=== PATIENT | female | born 1965 | race Caucasian/White ===

== ENCOUNTER 2017-11-08 02:19 | Outpatient (CLI) | payer MEDICARE, MEDICAID, SELFPAY ==
[2017-11-08 11:36] LABS: TSH 0.95 uIU/mL (0.358-3.74)
== END 2017-11-08 02:39 ==
PROVIDERS: PCP Emergency Medicine; Visit Provider Emergency Medicine
DX: E03.9 Hypothyroidism, unspecified (principal)
CPT/HCPCS: 36415; 84443

== ENCOUNTER 2018-12-01 01:56 | Outpatient (CLI) | payer MEDICARE, MEDICAID, SELFPAY ==
[2018-12-01 11:55] LABS: HCT 44.1 % (36.0-46.0); HGB 14.4 g/dL (12.0-15.5); Mean Corp. HGB Concentration 32.7 g/dL (32.0-36.0); Mean Corpuscular Hemoglobin 32.8 pg (27.0-33.0); Mean Corpuscular Volume 100.5 fL (80-95); Mean Platelet Volume 9.7 fL (8.0-11.0); Platelet Count 412 x1000/uL (130-400); RBC 4.39 m/cumm (4.00-5.20); RBC Distribution Width 12.9 % (11.7-14.6); White Blood Cell Count 4.54 k/cumm (4.4-10.8)
[2018-12-01 12:32] LABS: ALT 31 U/L (14-59); AST 21 U/L (15-37); Albumin 3.4 g/dL (3.4-5.0); Alkaline Phosphatase 66 U/L (46-116); Anion Gap 9.3 mmol/L (3-11); BUN 16 mg/dL (7-18); Bilirubin, Total 0.6 mg/dL (0.2-1.0); CO2 27.7 mmol/L (21.0-32.0); CREATININE 0.76 mg/dL (0.55-1.02); Calcium 9.2 mg/dL (8.5-10.1); Chloride 105 mmol/L (98-107); Glucose 83 mg/dL (70-100); Potassium 4.3 mmol/L (3.5-5.1); Sodium 142 mmol/L (136-145); TSH 1.11 uIU/mL (0.36-3.74); Total Protein 7.1 g/dL (6.4-8.2)
[2018-12-01 13:06] LABS: ESR 18 mm/hr (0-30)
== END 2018-12-01 02:16 ==
PROVIDERS: PCP Emergency Medicine; Visit Provider Emergency Medicine
DX: E03.9 Hypothyroidism, unspecified (principal); Q90.9 Down syndrome, unspecified
CPT/HCPCS: 36415; 80053; 85027; 85652; 84443

== ENCOUNTER 2019-02-16 03:10 | Outpatient (CLI) | payer MEDICARE, MEDICAID, SELFPAY ==
[2019-02-16 11:41] LABS: Abs Immature Grans 0.01 k/cumm (0.0-0.09); Absolute Basophil Count 0.02 k/cumm (0.0-0.2); Absolute Lymphocyte Count 1.84 k/cumm (1.2-3.4); Absolute Monocyte Count 0.35 k/cumm (0.11-0.7); Absolute Neutrophil Count 2.91 k/cumm (1.2-6.7); Basophils % 0.4; Eosinophils % 1.9; HCT 42.7 % (36.0-46.0); HGB 13.6 g/dL (12.0-15.5); Immature Grans % 0.2 %; Lymphocytes % 35.2; Mean Corp. HGB Concentration 31.9 g/dL (32.0-36.0); Mean Corpuscular Hemoglobin 32.4 pg (27.0-33.0); Mean Corpuscular Volume 101.7 fL (80-95); Mean Platelet Volume 9.8 fL (8.0-11.0); Monocytes % 6.7; Neutrophils % 55.6; Platelet Count 363 x1000/uL (130-400); RBC Distribution Width 12.6 % (11.7-14.6); White Blood Cell Count 5.23 k/cumm (4.4-10.8)
[2019-02-16 13:03] LABS: Vitamin B12 501 pg/mL (193-986)
[2019-02-16 13:06] LABS: Folate > 20.0 ng/mL (8.6-20.0)
[2019-02-20 15:49] LABS: Methylmalonic Acid 0.15 nmol/mL (<=0.40)
== END 2019-02-16 03:30 ==
PROVIDERS: PCP Emergency Medicine; Visit Provider Emergency Medicine
DX: R63.4 Abnormal weight loss (principal); Z51.81 Encounter for therapeutic drug level monitoring; E03.9 Hypothyroidism, unspecified
CPT/HCPCS: 36415; 80186; 82607; 82746; 85025

== ENCOUNTER 2020-05-26 03:02 | Outpatient (CLI) | payer MEDICARE, MEDICAID, SELFPAY ==
[2020-05-27 18:09] LABS: COVID-19 RT-PCR UVMMC Result Negative (Negative)
== END 2020-05-26 03:03 | disposition home or self-care (01) ==
LOC: LBO 03:02
PROVIDERS: PCP Emergency Medicine; Visit Provider Emergency Medicine
DX: Z20.822 Contact with and (suspected) exposure to COVID-19 (principal)
CPT/HCPCS: U0003; U0005

== ENCOUNTER 2020-11-25 15:12 | Outpatient (REF) | payer MEDICARE, MEDICAID, SELFPAY ==
[2020-11-25 18:32] LABS: HGB 14.6 g/dL (11.2-15.7); MCH 32.4 pg (27.0-33.0); MCHC 32.4 % (32.0-36.0); MCV 99.8 fL (80-95); MPV 9.7 fL (8.0-11.0); Platelet Count 367 10^3/uL (130-400); RBC 4.51 10^6/uL (3.93-5.22); RDW 12.6 % (11.7-14.6); RDW-SD 46.5 fL
[2020-11-25 18:38] LABS: ALT 35 U/L (14-59); AST 22 U/L (15-37); Albumin 3.4 g/dL (3.4-5.0); Alkaline Phosphatase 74 U/L (46-116); Anion Gap 7.9 mmol/L (3-11); BUN 14 mg/dL (7-18); Bilirubin, Total 0.4 mg/dL (0.2-1.0); CO2 30.1 mmol/L (21.0-32.0); CREATININE 0.8 mg/dL (0.55-1.02); Calcium 8.9 mg/dL (8.5-10.1); Chloride 105 mmol/L (98-107); Glucose 109 mg/dL (74-106); Potassium 4.5 mmol/L (3.5-5.1); Sodium 143 mmol/L (136-145); TSH 0.29 uIU/mL (0.36-3.74)
== END 2020-11-25 15:13 | disposition home or self-care (01) ==
LOC: LBN 15:12
PROVIDERS: PCP Emergency Medicine; Visit Provider Emergency Medicine
DX: E03.9 Hypothyroidism, unspecified (principal); R46.89 Other symptoms and signs involving appearance and behavior
CPT/HCPCS: 80053; 85027; 84443; 86140

== ENCOUNTER → 2021-12-28 12:24 | Outpatient (BNVA) | payer MEDICARE, MEDICAID, SELFPAY | PROVIDERS: PCP Family Medicine; Referring Provider Family Medicine; Visit Provider Nurse Practitioner Adult Health | DX: G30.9 Alzheimer's disease, unspecified (principal); F02.80 Dementia in other diseases classified elsewhere, unspecified severity, without behavioral disturbance, psychotic disturbance, mood disturbance, and anxiety; Q90.9 Down syndrome, unspecified; R29.810 Facial weakness | CPT/HCPCS: 99204; 99205; G2212 ==

== ENCOUNTER 2022-02-02 02:27 | Outpatient (CLI) | payer MEDICARE, MEDICAID, SELFPAY ==
--- NOTE | 2022-02-02 08:15 | DI.CT_ITS ---
Exam(s) CT HEAD WO EXAM: CT HEAD WO CLINICAL HISTORY: right facial weakness, cognitive changes,DOWNS SYNDROME,R29.810,F02.80. TECHNIQUE: Imaging Protocol: Axial computed tomography images with coronal and sagittal reformatted images were created and reviewed COMPARISON: No exams were available for comparison FINDINGS: There are no skull fractures. There is no fluid in the visualized paranasal sinuses. There is no evidence of intracranial hemorrhage, mass effect, or shift of midline structures. There are no extra-axial fluid collections. The ventricles are not enlarged or shifted and there is no blo od within the ventricular system nor within the basal cisterns. No evidence of cerebellar tonsillar ectopia. IMPRESSION: No acute intracranial findings on this noninfused CT scan of the brain. RADIATION DOSE DELIVERED: 583.42mGy.cm Total DLP DATA REPOSITORY: All CT scans at this facility are submitted to the National Radiology Data Registry (NRDR) Dose Index Registry (DIR) with the [employer] (ACR). RADIATION OPTIMIZATION: All CT scans at this facility use at least one of these dose optimization te chniques: automated exposure control; mA and/or kV adjustment per patient size (includes targeted exa ms where dose is matched to clinical indication); or iterative reconstruction.
--- NOTE | 2022-02-07 21:30 | PDOC.EEG_ITS ---
Neurology EEG EEG: [facility] Department of Neurology EEG REPORT Date of Recordin02/02/22 Interpreting Physician: Dr. Vivi Valdivia PCP/Referring Provider: Elaine Thapa MD; Dana Medina NP Reason for study: Sonya Scott is a 56 year old with Down syndrome, cognitive decline, and staring spells concerning for seizure. Current Medications: Home Medications Medication Instructions Recorded Confirmed Type terbinafine HCl 1 % topical cream 1 applic topical .3xwkly PRN 12/06/18 12/28/21 History multivitamin (Daily Multi-Vitamin 1 tab PO DAILY #90 tab-caps 05/20/21 12/28/21 Rx tablet) lanolin-hydrophilic cream topical applic topical 07/29/21 12/28/21 History ointment melatonin 3 mg tablet 3 mg PO HS PRN sleep #90 tabs 07/29/21 12/28/21 Rx levothyroxine 100 mcg tablet 100 mcg PO DAILY #90 tabs 10/20/21 12/28/21 Rx (Synthroid) diaper,brief,adult,disposable #100 ea 02/03/22 Rx disposable gloves #50 ea 02/03/22 Rx underpads (Bed Underpads) #300 ea 02/03/22 Rx METHODS: A 21 channel digitized electroencephalogram was performed in the [facility] Clinical Neurophysiology Laboratory. The 10/20 international system of electrode placement was used and bipolar and referential electrode montages were recorded. In addition to EEG the patient was monitored for EKG and lateral/vertical eye movements. Activation procedures of photic stimulation and hyperventilation were performed if applicable. Video was used during activation procedures and during events where applicable. The duration of the recording was 30 minutes. DESCRIPTION OF EEG: The patient was noted to be awake only during the recording. During maximal wakefulness a 9-Hz posterior background rhythm was present which was well- modulated, symmetrical, reactive to eye opening, and of moderate voltage. With eye opening the background activity changed to a low voltage mixture of alpha, beta, and occasional theta range frequencies. Faster frequencies were present in the bilateral anterior head regions. There was a normal anterior-posterior voltage gradient. No drowsiness or stage II sleep was recorded. There were rare, non-specific C4/P4 sharp-waves. These were not epileptiform. There was moderate-amplitude, generalized, polymorphic delta slowing throughout the recording. There was an excessive amount of diffuse low amplitude beta of unclear etiology. Activating Procedures: Photic stimulation was performed which produced no posterior driving response. Hyperventilation was performed with moderate effort and produced no physiological slowing of the background. EKG: EKG revealed normal sinus rhythm. INTERPRETATION: This EEG is abnormal due to generalized, polymorphic slowing. PRIOR EEG: none CLINICAL CORRELATION: The background slowing is suggestive of a mild diffuse cerebral encephalopathy of broad differential including toxic-metabolic etiology. No focal regions of cerebral dysfunction or epileptiform activity was present, however, no sleep was recorded during the study which reduces the sensitivity of the exam. If seizure remains a part of the differential, consider a repeat sleep-deprived EEG or overnight ambulatory EEG. Clinical correlation is advised. Vivi Valdivia MD
== END 2022-02-02 02:28 | disposition home or self-care (01) ==
PROVIDERS: PCP Family Medicine; Visit Provider Nurse Practitioner Adult Health
DX: F02.80 Dementia in other diseases classified elsewhere, unspecified severity, without behavioral disturbance, psychotic disturbance, mood disturbance, and anxiety; G30.9 Alzheimer's disease, unspecified; R29.810 Facial weakness
CPT/HCPCS: 95816; 70450

== ENCOUNTER 2022-03-15 03:32 | Outpatient (CLI) | payer MEDICARE, MEDICAID, SELFPAY ==
--- NOTE | 2022-03-18 22:03 | PDOC.EEG_ITS ---
Neurology EEG EEG: [facility] Department of Neurology LONG-TERM AMBULATORY EEG REPORT Date of Recordin03/15/22 at 15:46:12 to 03/16/22 at 17:17:41 Interpreting Physician: Dr. Vivi Valdivia PCP/Referring Provider: Elaine Thapa MD/Dana Medina NP Reason for study: Sonya Scott is a 56 year-old woman with Down syndrome and staring spells. Current Medications: Home Medications Medication Instructions Recorded Confirmed Type terbinafine HCl 1 % topical cream 1 applic topical .3xwkly PRN 12/06/18 12/28/21 History multivitamin (Daily Multi-Vitamin 1 tab PO DAILY #90 tab-caps 05/20/21 12/28/21 Rx tablet) lanolin-hydrophilic cream topical applic topical 07/29/21 12/28/21 History ointment melatonin 3 mg tablet 3 mg PO HS PRN sleep #90 tabs 07/29/21 12/28/21 Rx levothyroxine 100 mcg tablet 100 mcg PO DAILY #90 tabs 10/20/21 12/28/21 Rx (Synthroid) underpads (Bed Underpads) #300 ea 02/03/22 Rx disposable gloves #100 ea 02/10/22 Rx diaper,brief,adult,disposable #100 ea 02/24/22 Rx gabapentin 100 mg capsule 100 mg PO DAILY PRN anxiety #30 03/10/22 Rx caps acetaminophen 650 mg 650 mg PO .Q4 PRN pain #1 tab 03/11/22 Rx tablet,extended release METHODS: An 18-channel digitized electroencephalogram was recorded in the ambulatory setting with video. The 10/20 international system of electrode placement was used and bipolar and referential electrode montages were recorded. In addition to EEG the patient was monitored for EKG and by video. Activation procedures of photic stimulation and hyperventilation were performed if applicable. The duration of the recording was ~25 hours. DESCRIPTION OF EEG: Waking background activity: During maximal wakefulness a 7-8-Hz posterior background rhythm was present which was poorly-modulated, symmetrical, reactive to eye opening, and of moderate voltage. Faster frequencies were present in the bilateral anterior head regions. There was a normal anterior-posterior voltage gradient. However, there was a generalized disorganization to the entire EEG. Drowsy and sleeping background activity: During drowsiness, there was attenuation of the posterior dominant background rhythm and vertex waves. Normal stage II and III sleep was present with symmetrical sleep spindles, K- complexes, and vertex waves with slowing of the background rhythm to delta/theta frequencies. REM sleep manifested by rapid lateral eye movements and faster background rhythms was recorded. Arousal was unremarkable. Interictal abnormalities: There was moderate-amplitude, generalized, polymorphic delta and theta slowing throughout the recording as well as an overall level of disorganization. There was an excessive amount of diffuse low amplitude beta of unclear etiology. Ictal findings: No events reported. Activating Procedures: Photic stimulation was performed which produced no posterior driving response. Hyperventilation was not performed. EKG: EKG revealed normal sinus rhythm. INTERPRETATION: This long-term EEG is abnormal due to generalized, polymorphic slowing and slowing of the background rhythm. No events were captured. PRIOR EEG: -02/02/22: generalized, polymorphic slowing. CLINICAL CORRELATION: The background slowing is suggestive of a mild diffuse cerebral encephalopathy of broad differential including toxic-metabolic etiology. No focal regions of cerebral dysfunction or epileptiform activity was present. Epilepsy remains a clinical diagnosis and a normal EEG does not rule out epilepsy. Clinical correlation is advised. Vivi Valdivia MD
== END 2022-03-15 03:33 | disposition home or self-care (01) ==
PROVIDERS: PCP Family Medicine; Visit Provider Nurse Practitioner Adult Health
DX: R40.4 Transient alteration of awareness (principal); Q90.9 Down syndrome, unspecified
CPT/HCPCS: 95714; 95720

== ENCOUNTER 2022-04-19 02:50 | Outpatient (CLI) | payer MEDICARE, MEDICAID, SELFPAY ==
--- NOTE | 2022-04-19 07:00 | DI.RAD_ITS ---
Exam(s) RF SMALL BOWEL SERIES EXAM: RF SMALL BOWEL SERIES CLINICAL HISTORY: F/U recent CT abd,R93.5,RLQ PAIN,INTUSSUSCEPTION,K56.1 TECHNIQUE: 2D and realtime digital imaging was performed. CONTRAST MATERIAL: Oral barium contrast was administered. COMPARISON: CT CT ABD/PELVIS W/ CONTR NO PO from 03/30/2022 FINDINGS: Examination is limited due to difficulty positioning patient. The patient was unable to lie flat. The small bowel demonstrates no structural abnormalities including structure, dilation, adhesion, or mass. Contrast passed into the colon without difficulty. No obvious site of obstruction is identifie d. The terminal ileum could not be well visualized due to difficulty positioning the patient. How er contrast passes into the colon. Normal transit time of 35 minutes. IMPRESSION: 1. No evidence of bowel obstruction. RADIATION DOSE DELIVERED: ivonne Quarles=23.4 mGy
[2022-04-19] MEDS: Barium Sulfate 60% W/V 355 ML BTL PO (11:11)
== END 2022-04-19 03:10 ==
PROVIDERS: PCP Family Medicine; Visit Provider Urology
DX: R93.5 Abnormal findings on diagnostic imaging of other abdominal regions, including retroperitoneum (principal); R10.31 Right lower quadrant pain; K56.1 Intussusception
CPT/HCPCS: 74250

== ENCOUNTER 2022-04-30 00:44 | Outpatient (CLI) | payer MEDICARE, MEDICAID, SELFPAY ==
--- NOTE | 2022-04-30 07:08 | DI.RAD_ITS ---
Exam(s) RF MODIFIED SPEECH BA SWALLOW TECHNIQUE: Modified barium swallow was performed in conjunction with speech pathology. CONTRAST MATERIAL: Oral barium contrast was administered. COMPARISON: No exams were available for comparison FINDINGS: Note that this is not a dedicated esophagram, distal esophagus not evaluated. There is no evidence of aspiration of thin liquids, barium coated cookies or barium pudding. Speech pathology report to follow. IMPRESSION: No evidence of aspiration. RADIATION DOSE DELIVERED: ivonne Quarles=6.75 mGy
[2022-04-30] MEDS: Barium Sulfate 700 MG TAB PO (09:37)
[2022-04-30] MEDS: Barium Sulfate Oral Paste 40% W/V 230 ML TUBE PO (09:38)
[2022-04-30] MEDS: Barium Sulfate 81% w/w for Oral Suspension 148 GM BTL PO (09:39)
--- NOTE | 2022-04-30 09:53 | ST.MBS ---
Date of Service Date of service: 04/30/22 Time of Service: 09:53 Modified Barium Swallow Study Findings: Video fluoroscopic Swallowing Evaluation (VFSE) / Modified Barium Swallow Study (MBSS) Speech Language Pathology Report Patient referred for VFSE/MBSS from Dr. Thapa given worsening dysphagia and coughing/choking episodes per caregiver report, following initial evaluation from [facility] and recommendation to complete MBSS. HPI & Patient report of function: Patient is a 56 year old F with Down Syndrome and likely dementia, followed by neurology for cognitive changes and recent increase in choking episodes per caregiver report. Medical History All Active Problems?(Updated 01/14/22 @ 16:21 by Dana Medina) Down's syndrome (Acute) Hyperlipidemia (Acute) Hypothyroidism (Acute) Behavioral change (Acute) Sleep disturbance (Acute) Umbilical abnormality (Acute ~10/13/21) Urinary incontinence (Acute) Alzheimer's dementia (Acute) Weakness on right side of face (Acute) Spells of decreased attentiveness (Acute) Recent Imaging/Diagnostics/Results: 02/02/[address] Impressions: No acute intracranial findings on this noninfused CT scan of the brain. IMPRESSIONS: Swallow safety is impaired; swallow efficiency is impaired. Oral-pharyngeal swallow function is largely safe/WFL, with some flash laryngeal penetration which resolves at swallow completion. No aspiration was observed. However, patient with significant esophageal phase deficits (significant stasis along proximal and distal portions of esophagus) putting her at risk of aspiration of reflux or regurgitated material during and after meals as well as overnight. Suspect moderate chronic esophageal dysphagia. Suspect patient's frequent refusal to continue with meals may also be related to discomfort r/t esophageal dysphagia. Patient appears to be at overall moderate risk for potential aspiration PNA and/or pulmonary compromise (primarily secondary to impulsive eating behaviors) and low-moderate risk for malnutrition, dehydration given esophageal phase deficits. Diet modification is indicated; non-oral nutrition is not indicated. Swallow prognosis is guarded given: Positive prognostic factors: Age, Family/caregiver support, Negative prognostic factors: Severity, Cognitive status, Specialist referrals:? GI ? Ancillary tests: May consider Barium Esophagram and/or High Resolution Esophageal Manometry. Patient/caregivers may prefer to focus on behavioral modifications without performing additional workup. RECOMMENDATIONS: Diet Texture Recommendation:? IDDSI LEVEL SOLIDS 6-Soft & Bite-Sized Solids LIQUIDS 0-Thin Liquids Please see further details at?[email or web address].iddsi.[email or web address] MEDICATIONS Whole or crushed with 4-Puree due to cognition/oral behaviors Diet texture modification is per patient's preference; please adjust diet textures at patient's discretion & collaboration with care team. Do not alter medications (e.g., cut)? without advice from your MD or pharmacist. Risk Management Strategies:? Behavioral reflux precautions, including upright position during + 90 mins after meals. Small bites, approx [id number] Small sips, approx 10 mL Alternate solids/liquids as able Slow rate Small/more frequent meals throughout the day Sleep with trunk at inclined angle if possible. Increased frequency and diligence of oral care. Control risk factors for aspiration pneumonia via (a) thorough oral hygiene & (b) maintaining physical mobility as tolerated PLAN: Therapy: No further [facility] services at this time. Education and recommendations provided to caregiver at completion of this exam. ----- OBJECTIVE Videofluoroscopic Swallow Evaluation (VFSE/MBSS) was conducted in the lateral projection by Speech-Language Pathologist, in collaboration with Radiologist, to evaluate oropharyngeal swallow function. Anatomic view under fluoroscopy: WFL PO Barium Contrast Trials Oral barium water-soluble contrast was administered as follows: IDDSI Level 0 Varibar thin liquid (40% w/v) IDDSI Level 4 Varibar pudding/pureed/extremely thick (40% w/v) IDDSI Level 7 Regular Solid: 1/2 guillermina cracker coated in 3 mL Varibar pudding 13 mm barium tablet taken with Thin Liquids. MBSImP Component Scores: COMPONENT Scale SCORE 1 Lip closure (0-4) 1 Resulted in interlabial escape, without progression to anterior lip 2 Hold Position (0-3) NA 3 Bolus Preparation (0-4) 1 Resulted in slow prolonged chewing/mashing with complete re-collection 4 Bolus Transport (0-4) 1 Demonstrated delayed initiation of tongue motion 5 Oral Residue (0-4) 1 Was a trace, lining oral structures 6 Swallow Initiation (0-4) 1 Occurred when the bolus head was in valleculae 7 Soft Palate Elevation (0-4) 0 Resulted in no bolus between soft palate and the pharyngeal wall 8 Laryngeal Elevation (0-3) 1 Was decreased with partial superior movement of thyroid cartilage/partial approximation of arytenoids to epiglottic petiole 9 Anterior Hyoid Motion (0-2) 0 Demonstrated complete anterior movement 10 Epiglottic Movement (0-2) 1 Resulted in partial inversion 11 Laryngeal Closure (0-2) 0 Was complete with no air or contrast in laryngeal vestibule 12 Pharyngeal Stripping Wave (0-2) 0 Was present and complete 13 Pharyngeal Contraction (0-3) NA 14 PES Opening (0-3) 0 Was completely distended and complete duration with no obstruction of flow 15 Tongue Base Retraction (0-4) 1 Allowed a trace column of contrast or air between tongue base and pharyngeal wall 16 Pharyngeal Residue (0-4) 2 Was a collection of residue within or on pharyngeal structures 17 Esophageal Clearance (0-4) 2 Resulted in esophageal retention with retrograde flow below pharyngoesophageal segment Results: COMPONENT Scale SCORE 1 Oral Score (0-18) 3 2 Pharyngeal Score (0-29) 4 3 Esophageal Score (0-4) 2 Penetration-Aspiration Scale: COMPONENT Scale SCORE 1 Thin liquid (1-8) 2 Contrast entered the airway, remained above the vocal folds, and was ejected from the airway. 2 [place] thick (1-8) NA 3 Honey thick (1-8) NA 4 Pudding thick (1-8) 1 Contrast did not enter the airway 5 Cookie (1-8) 1 Contrast did not enter the airway Other observations: Patient with impulsive feeding behaviors and difficulty following instructions (e.g., Wait until I tell you to swallow. Do not chew this, swallow it whole.) . Trialed Compensatory Strategies & Outcome: Maneuvers Successful (+) Unsuccessful (-) Postures Successful (+) Unsuccessful (-) 3 second Preparatory Set? ? +/- Chin Tuck Posture? ? Cough? ? Posterior Head tilt? Reflexive? Cued? Throat Clear? ? Head Tilt to? Reflexive? Left? Cued? Right? ? Saliva swallow? ? Head Turn/Rotate to? ? Supraglottic Swallow? Left? ? Super-supraglottic Swallow? Right? ? Bolus Modifications Successful (+) Unsuccessful (-) Delivery/Alternating Consistencies ? Follow with Liquid Wash ? Follow with Solid Bolus? Delivery/Via Straw? ? Reduced Volume? +? Reduced Rate of Intake? ?+ Increased Viscosity? ? Other:?? ? Thank you for allowing us to take part in this patient's care. Please feel free to contact the [facility] Speech Language Pathology Department with any questions/concerns. Coding CPT Codes MOTION FLUOROSCOPY/SWALLOW - [id number] ([id number])
== END 2022-04-30 01:04 ==
PROVIDERS: PCP Family Medicine; Visit Provider Speech-Language Pathologist
DX: F02.80 Dementia in other diseases classified elsewhere, unspecified severity, without behavioral disturbance, psychotic disturbance, mood disturbance, and anxiety (principal); G30.9 Alzheimer's disease, unspecified; Q90.9 Down syndrome, unspecified; R13.10 Dysphagia, unspecified
CPT/HCPCS: 92611; 74221

== ENCOUNTER 2022-05-24 10:56 | Day surgery (SDC) | payer MEDICARE, MEDICAID, SELFPAY ==
[2022-05-24] VITALS (10 sets, daily range): BP systolic 84–133; BP diastolic 42–71; PULSE 52–79; RESP 10–16; TEMP 36.4–36.7; O2SAT 95–100; BMI 22.8
[2022-05-24] MEDS: Tropicam./Phenyleph. (1/2.5%) 5 ML BTL OU ×3 (11:44→11:59)
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
[2022-05-24] MEDS: Lactated Ringers 1,000 ML 80 ML IV ×2 (12:30→12:45)
[2022-05-24] MEDS: Balanced Salt Soln.-PLUS 500 ML BAG ×2 (13:25→13:47)
[2022-05-24] MEDS: Tetracaine 0.5% 4 ML BTL OU (13:25)
[2022-05-24] MEDS: Duovisc Viscoelastic System EACH 1 EACH ×2 (13:26→13:47)
[2022-05-24] MEDS: Lidocaine 1% Pres-Free 5 ML VIAL ×2 (13:26→13:47)
[2022-05-24] MEDS: Phenylephrine/Lidocaine (15/10) MG/ML 1 ML VIAL ×2 (13:27→13:49)
[2022-05-24] MEDS: Povidone-Iodine Ophth 30 ML BTL ×2 (13:28→13:49)
[2022-05-24] MEDS: Trypan Blue 0.06% 0.5 ML SYR ×2 (13:29→13:53)
--- NOTE | 2022-05-24 14:19 | W.PM.DSUDISC ---
Date of service: 05/24/22 Time of Service: 14:20 Discharge Plan Disposition Patient Disposition: Home Discharge Details Attending Provider: Vince Landrum Primary Care Provider: Elaine Thapa Home Meds and New Rx's Prescriptions: No Action terbinafine HCl 1 % cream 1 applic TP .3xwkly PRN lanolin-hydrophilic cream Ointment topical melatonin 3 mg tablet 3 mg PO HS PRN (Reason: sleep) Qty: 90 3RF lorazepam 0.5 mg tablet 0.5 mg PO DAILY PRN (Reason: anxiety) Qty: 3 0RF Rx Instructions: take 60-90 minutes prior to transport sertraline 25 mg tablet 25 mg PO DAILY Qty: 30 1RF (DME) underpads [Bed Underpads] Pad See Rx Instructions .Route Qty: 300 1RF Rx Instructions: As directed (DME) diaper,brief,adult,disposable Misc See Rx Instructions .Route Qty: 100 12RF Rx Instructions: As directed - size medium (DME) disposable gloves Package See Rx Instructions .Route Qty: 100 12RF Rx Instructions: As directed gabapentin 300 mg capsule 300 mg PO .COMPLEX Qty: 90 12RF Rx Instructions: 300 mg orally bid and 300mg daily prn anxiety; levothyroxine 88 mcg tablet 88 mcg PO DAILY Qty: 90 3RF acetaminophen 650 mg tablet extended release 650 mg PO .Q4 PRN (Reason: pain) Qty: 1 0RF levetiracetam [Keppra] 250 mg tablet 250 mg PO BID Qty: 60 2RF multivitamin [Daily Multi-Vitamin] Tablet 1 tab PO DAILY Qty: 90 3RF famotidine 40 mg/5 mL (8 mg/mL) suspension 20 mg PO BID Qty: 150 2RF (DME) diaper,brief,adult,disposable Misc See Rx Instructions .Route Qty: 160 12RF Rx Instructions: As directed - heavy duty (DME) adult diaper inserts See Rx Instructions .Route .MEDSUPPLY Qty: 140 12RF Rx Instructions: As directed - use with adult diapers quetiapine 25 mg tablet 25 mg PO DAILY PRN (Reason: agitation) Qty: 90 0RF Discharge Instructions Stand Alone Forms: Post-op Topical Cataract, Press Ganey (DSU) Discharge Orders Discharge Orders: Discharge Order (Routine); Ordered 05/24/22 Ordered By: Vince Landrum DS: Diagnosis Discharge Diagnosis (1) Nuclear age-related cataract, left eye: Status: Resolved (2) Posterior subcapsular age-related cataract of left eye: Status: Resolved (3) Nuclear age-related cataract, right eye: Status: Resolved (4) Posterior subcapsular age-related cataract, right eye: Status: Resolved
--- NOTE | 2022-05-24 14:22 | W.PM.OP ---
Date of service: 05/24/22 Time of Service: 14:22 Operative Note Operative Note DATE OF PROCEDURE: 05/24/22 PRE-OP DIAGNOSIS: Dense nuclear/posterior subcapsular cataract, both eyes POST-OP DIAGNOSIS: same PROCEDURE: Immediately sequential bilateral cataract extraction using phacoemulsification with intraocular lens implants, both eyes SURGEON: Vince Landrum Refer to Anesthesia Record PATHOLOGY: none sent COMPLICATIONS: None Patient was transported to: same day Patient's condition: stable Implants: Johnny Clareon CCA0T0 intraocular lenses both eyes Indications: Progressive decreased vision due to cataract, both eyes Procedure Description: CATARACT SURGERY OPERATIVE REPORT PREOPERATIVE DIAGNOSIS: Dense nuclear/posterior subcapsular cataract, both eyes POSTOPERATIVE DIAGNOSIS: Same OPERATION: Bilateral sequential cataract extraction using phacoemulsification with posterior chamber intraocular lens implant, both eyes IOL OS: IOL Director Of Training/Model: Johnny Clareon CCA0T0 IOL Power: + 21.5 diopters IOL Serial Number: [id number] Optic Diameter: 6.0mm Haptic/Overall Diameter: 13.0mm PHACO INFO OS: Johnny Centurion Vision System with OZil and Active Fluidics Cumulative Dispersed Energy (CDE): 8.74 seconds IOL OD: IOL Director Of Training/Model: Johnny Clareon CCA0T0 IOL Power: + 17.5 diopters IOL Serial Number: [id number] Optic Diameter: 6.0mm Haptic/Overall Diameter: 13.0mm PHACO INFO OD: Johnny Centurion Vision System with OZil and Active Fluidics Cumulative Dispersed Energy (CDE): 7.56 seconds SURGEON: Vince Landrum MD, DAVID ANESTHESIA: Monitored Anesthesia Care (MAC), with local sub-tenon's anesthetic infiltration COMPLICATIONS: None SPECIMENS: None INDICATIONS FOR PROCEDURE: The patient is a 56-year-old lady with history of significantly depressed bilateral visual acuity. She is noted to have advanced nuclear/posterior subcapsular cataract, almost mature white cataract in both eyes. She has significant physical and cognitive disabilities. She can no longer see to navigate her home. Her caregivers note that she is bumping into finch. Cataract surgery is undertaken in attempt to improve and maximize her visual acuity and improve quality of life. General anesthesia is necessary, as she is unlikely unable to cooperate under local anesthesia with or without sedation. PROCEDURE: The correct surgical eye was identified and marked as both eyes and the pupils were dilated in the preoperative area using mydriatics and cycloplegics. The dilated pupil size was 8.0 mm. The patient was brought to the operating room where cardiopulmonary monitoring was instituted and surgical time-out was performed, confirming the correct operative eye and IOL power for the right eye, was addressed first.. General anesthesia was then instituted. Topical anesthesia was administered and ophthalmic povidone-iodine 5% was instilled into the conjunctival fornices. The jordan-ocular area was prepped with Betadine 10% solution and draped in the usual sterile fashion for intraocular surgery, including an aperture drape. A Tegaderm transparent film dressing was cut in half and used to cover the lashes and lid margins. Care was taken to sequester the lashes and lid margins under the Tegaderm dressing. A lid speculum was placed between the lids of the operative eye and the Beverly-Shaylee operating microscope was maneuvered into position. Uriel scissors were then used to make a conjunctival buttonhole approximately 6mm posterior to the limbus in the inferonasal quadrant. Blunt dissection was carried out to expose bare sclera, and a blunt-tipped sub-tenon?s anesthesia cannula was introduced and passed posteriorly along the globe where non-preserved plain lidocaine was injected into posterior sub-Tenon?s space. A sideport knife was used to make a paracentesis port at the 7:00 postion. VisionBlue was injected into the anterior chamber and allowed to sit for 15 to 20 seconds. Intraocular phenylephrine/lidocaine was injected into the anterior chamber. The anterior chamber was filled with Viscoat. A 2.6mm keratome knife was used to create a half-thickness groove at the limbus and then to construct a three-plane near-clear corneal tunnel extending 2.0mm into clear cornea at the 10:00 position. A flap was raised on the anterior capsule and capsulorhexis forceps were used to complete a continuous curvilinear capsulorhexis of 5.0 mm. Due to the mature white nature of the cataract, a spiral technique was used to create the capsulorrhexis. Fortunately, no liquefied cortex was encountered, nor was there elevated intra lenticular pressure. Balanced salt solution was then used to perform cortical cleaving hydrodissection and nuclear hydrodelineation until the lens could be freely rotated within the capsular bag. The lens nucleus was then disassembled and removed within the capsular bag and iris plane using phacoemulsification. Residual cortical material was removed using the 45-degree angled silicone I/A tip with 0.3mm port. The posterior capsule was carefully polished to remove as much residual lens epithelial cells as safely possible. The capsular bag was then inflated and the anterior chamber deepened with viscoelastic. The lens implant described above was inserted into the capsular bag using the Johnny Autonome Injector. A Kuglen hook was used to dial the IOL into position. Residual viscoelastic was then removed first from posterior to the IOL, then from the anterior chamber using the I/A handpiece. The lens implant was noted to center nicely within the capsular bag. The incisions were stromally hydrated, and the anterior chamber was reformed using BSS. Then 0.4cc of moxifloxacin 1.5mg/ml were injected into the capsular bag and anterior chamber. The incisions were checked with a Weck spear and found to be secure. Several drops of ophthalmic povidone-iodine 5% were then applied to the eye followed by two drops of Imprimis combination prednisolone/moxifloxacin/nepafenac solution. The drapes were removed and a clear plastic protective eye shield was placed over the eye. Attention was then directed toward the left eye, where an entirely new set of instruments, tubing, medications, fluids, gowns, gloves, and drapes were used. Topical anesthesia was administered and ophthalmic povidone-iodine 5% was instilled into the conjunctival fornices. The jordan-ocular area was prepped with Betadine 10% solution and draped in the usual sterile fashion for intraocular surgery, including an aperture drape. A Tegaderm transparent film dressing was cut in half and used to cover the lashes and lid margins. Care was taken to sequester the lashes and lid margins under the Tegaderm dressing. A lid speculum was placed between the lids of the operative eye and the Beverly-Shaylee operating microscope was maneuvered into position. Uriel scissors were then used to make a conjunctival buttonhole approximately 6mm posterior to the limbus in the inferonasal quadrant. Blunt dissection was carried out to expose bare sclera, and a blunt-tipped sub-tenon?s anesthesia cannula was introduced and passed posteriorly along the globe where non-preserved plain lidocaine was injected into posterior sub-Tenon?s space. A sideport knife was used to make a paracentesis port at the 12:00 postion. VisionBlue was injected into the anterior chamber and allowed to sit for 12 to 15 seconds. Intraocular phenylephrine/lidocaine was injected into the anterior chamber. The anterior chamber was filled with Viscoat. A 2.6mm keratome knife was used to create a half-thickness groove at the limbus and then to construct a three-plane near-clear corneal tunnel extending 2.0mm into clear cornea at the 3:00 position. A flap was raised on the anterior capsule and capsulorhexis forceps were used to complete a continuous curvilinear capsulorhexis of 5.0 mm. Due to the advanced white nature of the cataract, a spiral technique was used to create the capsulorrhexis. Fortunately, there was no elevated intra lenticular pressure or liquefied cortical material. Balanced salt solution was then used to perform cortical cleaving hydrodissection and nuclear hydrodelineation until the lens could be freely rotated within the capsular bag. The lens nucleus was then disassembled and removed within the capsular bag and iris plane using phacoemulsification. Residual cortical material was removed using the 45-degree angled silicone I/A tip with 0.3mm port. The posterior capsule was carefully polished to remove as much residual lens epithelial cells as safely possible. The capsular bag was then inflated and the anterior chamber deepened with viscoelastic. The lens implant described above was inserted into the capsular bag using the Johnny Autonome Injector. A Kuglen hook was used to dial the IOL into position. Residual viscoelastic was then removed first from posterior to the IOL, then from the anterior chamber using the I/A handpiece. The lens implant was noted to center nicely within the capsular bag. The incisions were stromally hydrated, and the anterior chamber was reformed using BSS. Then 0.5cc of moxifloxacin 1.0mg/ml were injected into the capsular bag and anterior chamber. The incisions were checked with a Weck spear and found to be secure. Several drops of ophthalmic povidone-iodine 5% were then applied to the eye followed by two drops of Imprimis combination prednisolone/moxifloxacin/nepafenac. The drapes were removed and a clear plastic protective eye shield was placed over the eye. The patient was then returned to [facility] in stable condition.
[2022-05-24] MEDS: ePHEDrine 25 MG/5 ML Syringe IVP (15:06)
--- NOTE | 2022-05-24 15:38 | W.ANESPOSTOP ---
Postoperative Evaluation Date, Time and Location Date Performed: 05/24/22 Time Performed: 15:32 Patient Location: PACU Vital Signs Most Recent Imported Vital Signs: Most Recent Vital Signs Temp Pulse Resp BP Pulse Ox 36.7 C 68 15 103/53 L 100 05/24/22 15:26 05/24/22 15:26 05/24/22 15:26 05/24/22 15:26 05/24/22 15:26 Pain Score Most Recent Pain Score: Most Recent Pain Score Pain Level 0 05/24/22 15:26 Assessment Mental Status: Awake (Alert & Oriented to Patient Baseline) Airway and Respiratory Function: Patent airway with normal (patient baseline) respiratory exam Cardiovascular Function: Hemodynamically Stable Hydration Status: Adequately Hydrated Nausea & Vomiting: No Nausea or Vomiting Pain: Pt. Denies Any Pain Peripheral Nerve Block: Patient did not receive a nerve block
== END 2022-05-24 16:15 | disposition home or self-care (01) ==
LOC: SUR 10:57
PROVIDERS: PCP Family Medicine; Visit Provider Ophthalmology
PROC: (CPT 66984; principal; 2022-05-24 14:30)
DX: H25.12 Age-related nuclear cataract, left eye (principal); H25.11 Age-related nuclear cataract, right eye; H25.042 Posterior subcapsular polar age-related cataract, left eye; H25.041 Posterior subcapsular polar age-related cataract, right eye
CPT/HCPCS: 66984; V2632; J1100; J2405; J2704

== ENCOUNTER → 2022-08-04 13:21 | Outpatient (BNVA) | payer MEDICARE, MEDICAID, SELFPAY | PROVIDERS: PCP Family Medicine; Referring Provider Family Medicine; Visit Provider Nurse Practitioner Adult Health | DX: G30.9 Alzheimer's disease, unspecified (principal); F02.80 Dementia in other diseases classified elsewhere, unspecified severity, without behavioral disturbance, psychotic disturbance, mood disturbance, and anxiety; R68.89 Other general symptoms and signs | CPT/HCPCS: 99213 ==